=== PATIENT | male | born 1985 | race Caucasian/White ===

== ENCOUNTER 2016-12-12 18:51 | Emergency (ER) | payer MEDICAID ==
[2016-12-12 21:24] VITALS: BP 123/72
== END 2016-12-12 21:24 | disposition home or self-care (01) ==
LOC: ED 18:51
DX: M51.36 Other intervertebral disc degeneration, lumbar region (principal); F17.210 Nicotine dependence, cigarettes, uncomplicated
CPT/HCPCS: 99406; J1100; J1885